=== PATIENT | male | born 1930 | race Caucasian/White ===

== ENCOUNTER → 2016-07-18 | Outpatient (REF) | payer MEDICARE, OTHER ==
[2016-07-18 11:17] LABS: ALBUMIN 4.2 g/dL (3.4-5.0); ANION GAP 14.8 MEQ/L (3-15); CALCULATED IONIZED CALCIUM 4.4 mg/dL (3.8-4.6)
== END ==
LOC: LAB 10:41
PROVIDERS: ATTEND Family Medicine
DX: I10 Essential (primary) hypertension (principal)
CPT/HCPCS: 80053